=== PATIENT | male | born 1980 | race Caucasian/White ===

== ENCOUNTER 2019-07-30 13:59 | Day surgery (SDC) | payer BC ==
--- NOTE | 2019-07-30 14:29 | PCM.PREANE ---
Preanesthetic Assessment - Procedure Proposed Procedure: egd with foreign body removal - Anesthesia/Transfusion/Family Hx Anesthesia History: Prior Anesthesia Without Reaction Family History of Anesthesia Reaction: No Transfusion History: No Prior Transfusion(s) - Review of Systems General: No Symptoms Pulmonary: No Symptoms Cardiovascular: No Symptoms Gastrointestinal: No Symptoms Neurological: Headache (migraines) Other: Reports: None - Physical Assessment NPO Status Date: 07/29/19 NPO Status Time: 20:00 (steak) Vital Signs: 117/74 75 96% 16 97.8 Height: 5 ft 10 in Weight: 86.183 kg ASA Class: 2E Mental Status: Alert & Oriented x3 Airway Class: Mallampati = 1 Dentition: Reports: Normal Dentition Thyro-Mental Finger Breadths: 3 Mouth Opening Finger Breadths: 3 ROM/Head Extension: Full Lungs: Clear to Auscultation, Normal Respiratory Effort Cardiovascular: Regular Rate, Regular Rhythm, No Murmurs - Allergies Allergies/Adverse Reactions: Allergies Allergy/AdvReac Type Severity Reaction Status Date / Time No Known Allergies Allergy Verified 07/26/14 11:14 - Blood Blood Available: No - Acknowledgements Anesthesia Type Planned: General Anesthesia, MAC Pt an Appropriate Candidate for the Planned Anesthesia: Yes Alternatives and Risks of Anesthesia Discussed w Pt/Guardian: Yes Pt/Guardian Understands and Agrees with Anesthesia Plan: Yes PreAnesthesia Questionnaire Cardiovascular History: 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) Respiratory History: Reports: None Gastrointestinal History: Reports: GERD (prn), Other (See Below) (has had issues with food stuck before- never surgery) Musculoskeletal History: Reports: None Neurological History: Reports: Migraines Psychiatric History: Reports: None Endocrine/Metabolic History: Reports: None Oncologic (Cancer) History: Reports: None - Past Surgical History HEENT Surgical History: Reports: Naso-Sinus Surgery GI Surgical History: Reports: Appendectomy - SUBSTANCE USE Smoking Status *Q: Never Smoker (no routine home meds) Tobacco Use Within Last Twelve Months: No Second Hand Smoke Exposure: No Days Per Week of Alcohol Use: 0 (rare) Recreational Drug Use History: No
[2019-07-30] MEDS ORDERED: Sodium Chloride 0.9% 10 ML Syringe FLUSH PRN (14:35)
[2019-07-30] MEDS ORDERED: Lidocaine 1%/Sod Bicarbonate in NS 8.4% 1 ML Syringe IDERM PRN (14:35)
[2019-07-30] MEDS ORDERED: Midazolam 1 MG/ML 2 ML SDV ONE (14:38)
[2019-07-30] MEDS ORDERED: Lidocaine 1% 4 ML ONE (14:38)
[2019-07-30] MEDS ORDERED: Propofol 200 MG/20 ML SDV ONE ×2 (14:38→16:24)
[2019-07-30] MEDS ORDERED: fentaNYL 100 MCG/2 ML SDV ONE (14:38)
[2019-07-30] MEDS ORDERED: Lactated Ringers 1,000 ML IV SCH (14:45)
--- NOTE | 2019-07-30 16:18 | PCM.HP.2 ---
H&P History of Present Illness - General Date of Service: 07/30/19 Source of Information: Patient History Limitations: Reports: No Limitations - History of Present Illness Initial Comments - Free Text/Narative: Patient has been having trouble swallowing for a period of time. Last night he was eating steak and had a piece of steak stuck. He was trying to eat and nothing was going through as he kept vomiting it. he denies any fevers chills, sob, chest pains. Onset of Symptoms: Reports: Gradual Duration of Symptoms: Reports: Day(s): (1), Constant Location: Reports: Abdomen Quality: Reports: Other Severity: Moderate Improves with: Reports: None Worsens with: Reports: None Throat Pain Score (Numeric/FACES): 2 - Related Data Allergies/Adverse Reactions: Allergies Allergy/AdvReac Type Severity Reaction Status Date / Time No Known Allergies Allergy Verified 07/26/14 11:14 Home Medications: Home Meds EPINEPHrine [Epipen] 1 injection SQ ASDIRECTED 07/30/19 [History] Esomeprazole Magnesium [Nexium] 40 mg PO BID 07/30/19 [History] SUMAtriptan Succinate [Imitrex] 100 mg PO ASDIRECTED PRN 07/30/19 [History] Past Medical History Cardiovascular History: 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) Respiratory History: Reports: None Gastrointestinal History: Reports: GERD (prn), Other (See Below) (has had issues with food stuck before- never surgery) Musculoskeletal History: Reports: None Neurological History: Reports: Migraines Psychiatric History: Reports: None Endocrine/Metabolic History: Reports: None Oncologic (Cancer) History: Reports: None - Past Surgical History HEENT Surgical History: Reports: Naso-Sinus Surgery GI Surgical History: Reports: Appendectomy Social & Family History - Tobacco Use Smoking Status *Q: Never Smoker (no routine home meds) Second Hand Smoke Exposure: No - Caffeine Use Caffeine Use: Reports: Coffee - Alcohol Use Days Per Week of Alcohol Use: 0 (rare) - Recreational Drug Use Recreational Drug Use: No H&P Review of Systems - Review of Systems: Review Of Systems: See Below General: Reports: Other (cant swallow) HEENT: Reports: No Symptoms Pulmonary: Reports: No Symptoms Cardiovascular: Reports: No Symptoms Gastrointestinal: Reports: Vomiting Genitourinary: Reports: No Symptoms Musculoskeletal: Reports: No Symptoms Skin: Reports: No Symptoms Psychiatric: Reports: No Symptoms Exam - Exam Exam: See Below - Vital Signs Vital Signs: Last Vital Signs Temp 97.8 F 07/30/19 14:05 Pulse 75 07/30/19 14:05 Resp 16 07/30/19 14:05 BP 117/74 07/30/19 14:05 Pulse Ox 96 07/30/19 14:05 Weight: 86.183 kg - Exam General: Alert, Oriented, Cooperative, Mild Distress Lungs: Clear to Auscultation, Normal Respiratory Effort Cardiovascular: Regular Rate, Regular Rhythm, Normal S1, Normal S2 GI/Abdominal Exam: Soft, Non-Tender, No Organomegaly, No Distention, No Abnormal Bruit, No Mass Sepsis Event Note - Evaluation Sepsis Screening Result: No Definite Risk - Focused Exam Vital Signs: Vital Signs Temp Pulse Resp BP Pulse Ox 07/30/19 14:05 97.8 F 75 16 117/74 96 Date Exam was Performed: 07/30/19 Time Exam was Performed: 16:13 Problem List Initiated/Reviewed/Updated: No Orders Last 24hrs: Active Orders 24 hr Category Date Time Status Peripheral IV Care [RC] . DIRECTED Care 07/30/19 14:35 Active Verify Patient Consent Obtain [RC] ASDIRECTED Care 07/30/19 14:35 Active Lactated Ringers [Ringers, Lactated] 1,000 ml Med 07/30/19 14:45 Active IV ASDIRECTED Lidocaine 1%/Sod Bicarbonate [Buffered Lidocaine 1% in Med 07/30/19 14:35 Active NS 8.4%] 0.25 ml IDERM ONETIME PRN Sodium Chloride 0.9% [Saline Flush] Med 07/30/19 14:35 Active 10 ml FLUSH ASDIRECTED PRN Medication Administration Instruction [OM.PC] Routine Oth 07/30/19 14:35 Ordered Peripheral IV Insertion Adult [OM.PC] Routine Oth 07/30/19 14:35 Ordered Medication Orders Lactated Ringer's (Ringers, Lactated) 1,000 mls @ 125 mls/hr IV ASDIRECTED NAYELY Stop: 07/30/19 23:00 Last Admin: 07/30/19 14:25 Dose: 125 mls/hr Lidocaine/Sodium Bicarbonate (Buffered Lidocaine 1% In Ns 8.4%) 0.25 ml IDERM ONETIME PRN PRN Reason: Prior to IV Start Stop: 07/30/19 23:00 Last Admin: 07/30/19 14:24 Dose: 0.25 ml Sodium Chloride (Saline Flush) 10 ml FLUSH ASDIRECTED PRN PRN Reason: Keep Vein Open Stop: 07/30/19 23:00 Assessment/Plan Comment:: Patient has esophageal food impaction. We will proceed with EGD, Fb removal, possible dilation. We discussed risks, benefits and alternatives. All questions were answered and informed consent was obtained.
[2019-07-30] MEDS ORDERED: Succinylcholine/Sod PF 100 MG/5 ML SYRINGE IV ONE (16:39)
[2019-07-30] MEDS ORDERED: Lactated Ringers 1,000 ML ONE (16:45)
[2019-07-30] MEDS ORDERED: Ondansetron 4 MG/2 ML SDV ONE (16:45)
--- NOTE | 2019-07-30 17:20 | PCM.POSTAN ---
POST ANESTHESIA ASSESSMENT - MENTAL STATUS Mental Status: Alert, Oriented - VITAL SIGNS Vital Signs: Last Vital Signs Temp 98.2 F 07/30/19 17:15 Pulse 75 07/30/19 14:05 Resp 15 07/30/19 17:15 BP 126/76 07/30/19 17:15 Pulse Ox 96 07/30/19 17:15 - RESPIRATORY Respiratory Status: Respiratory Rate WNL, Airway Patent, O2 Saturation Stable, Supplemental Oxygen - CARDIOVASCULAR CV Status: Pulse Rate WNL, Blood Pressure Stable - GASTROINTESTINAL GI Status: No Symptoms - PAIN Pain Score: 0 - POST OP HYDRATION Hydration Status: Adequate & Stable
[2019-07-30] MEDS ORDERED: HYDROmorphone 0.5 MG/0.5 ML Syringe IVPUSH PRN (17:21)
[2019-07-30] MEDS ORDERED: Ondansetron 4 MG/2 ML SDV IVPUSH PRN (17:21)
[2019-07-30] MEDS ORDERED: fentaNYL 100 MCG/2 ML SDV IVPUSH PRN (17:21)
--- NOTE | 2019-07-30 17:34 | PCM48HPAN ---
Post Anesthesia Note - EVALUATION WITHIN 48HRS OF ANESTHETIC Vital Signs in Normal Range: Yes Patient Participated in Evaluation: Yes Respiratory Function Stable: Yes Airway Patent: Yes Cardiovascular Function Stable: Yes Hydration Status Stable: Yes Pain Control Satisfactory: Yes Nausea and Vomiting Control Satisfactory: Yes Mental Status Recovered: Yes Vital Signs: Last Vital Signs Temp 98.1 F 07/30/19 17:30 Pulse 75 07/30/19 14:05 Resp 20 07/30/19 17:30 BP 116/60 07/30/19 17:30 Pulse Ox 94 L 07/30/19 17:30
--- NOTE | 2019-07-31 11:20 | PROC ---
DATE OF OPERATION: 07/30/2019 SURGEON: Wei Pittman MD PREOPERATIVE DIAGNOSIS: Esophageal food impaction. POSTOPERATIVE DIAGNOSES: 1. Esophageal food impaction. 2. Distal esophageal stricture. 3. Gastritis. 4. Esophagitis. OPERATION PERFORMED: 1. Esophagogastroduodenoscopy with foreign body disimpaction. 2. Balloon dilation of distal esophageal stricture. 3. Gastric and esophageal biopsies. ANESTHESIA: General endotracheal. ESTIMATED BLOOD LOSS: Minimal. COMPLICATIONS: None. INDICATIONS AND CONSENT: Mr. Pichardo is a 38-year-old male who has been having trouble swallowing for several months. The patient tried to eat a piece of steak last night and it got stuck into the esophagus. The patient tried to eat after that, but kept vomiting. He went to the emergency department this morning and a CT scan was performed and it was noted that he had soft tissue mass in the distal esophagus concerning for food impaction. The patient was sent here for evaluation. I saw the patient and confirmed the findings and discussed with the patient that he needed an EGD with food disimpaction, biopsies as well as possible dilation. I discussed with the patient risks, benefits, and alternatives. Risks discussed included bleeding and perforation. The patient agreed to proceed with procedure and informed consent was obtained. DETAILS OF PROCEDURE: The patient was taken to the procedure room and placed in left lateral decubitus position. Following induction of initially monitored anesthesia care, a time- out was performed and we began the procedure. I used a therapeutic Olympus endoscope to enter the mouth and into the esophagus. There was clearly a piece of food in the distal esophagus. This was pushed slowly, but steadily and eventually it went into the stomach. There was a stricture about 0.9 cm in the distal esophagus. I was able to traverse this stricture with a gentle push through the scope, and the stomach was examined down to the second portion of duodenum. The duodenum was normal. The antrum appeared to be a little erythematous indicating gastritis. We took biopsies for histology as well as H pylori analysis. On retroflex views, the food bolus could be seen in the cardia of the stomach. There was no hiatal hernia. The scope was withdrawn back into the stricture. We were able to traverse the stricture again. At this point, we did find some slight erythema in the distal esophagus. The stricture was at 38 cm from the incisors and it appeared benign. We used 12, 13.5, and 15 pneumatic balloons to stretch this stricture. Biopsies were taken here at the stricture site as well as the distal esophagus for histologic analysis. At this point, we advanced the scope back down to the stomach. Once the dilation was done, the stricture was open and scope was freely able to move now between the esophagus and the stomach. At this point, the air was suctioned out from the stomach and esophagus, and the food was also suctioned out and scope was withdrawn. There were no other abnormalities in mid and distal esophagus. The plan is for the patient to be able to tolerate food and be able to discharge home today. The patient will be taking Nexium daily for the next 6 months. The patient may need future dilation and I did warn him about this, should the stricture recur. At this point, the patient has an indication for anti-reflux surgery, and I discussed with him about this. If he needs surgery, he will come to clinic to discuss about this further. [facility] /[id number] TEO
== END 2019-07-30 16:19 | disposition home or self-care (01) ==
LOC: JD.SDS 13:59
PROVIDERS: ATTEND Surgery
DX: K29.50 Unspecified chronic gastritis without bleeding (principal); K20.9 Esophagitis, unspecified; K21.9 Gastro-esophageal reflux disease without esophagitis; K22.2 Esophageal obstruction; T18.128A Food in esophagus causing other injury, initial encounter; Z79.899 Other long term (current) drug therapy
CPT/HCPCS: 43239; 43247; 43249; J0330; J2001; J2250; J2405; J2704; J3010; J7120; 00731

== ENCOUNTER 2024-02-10 13:04 | Day surgery (SDC) | payer BC ==
[2024-02-10 14:04] LABS: BASOPHILS PERCENT AUTO 0.5 % (0.0-1.0); EOSINOPHILS ABSOLUTE AUTO 0.4 K/mm3 (0.0-0.4); EOSINOPHILS PERCENT AUTO 4.7 % (0.0-6.0); HEMATOCRIT 47.5 % (42.0-52.0); HEMOGLOBIN 15.4 gm/dl (14.0-18.0); IMMATURE GRAN ABSOLUTE AUTO 0.02 K/mm3 (0.00-0.05); IMMATURE GRAN PERCENT AUTO 0.3 % (0.0-0.4); LYMPHOCYTES ABSOLUTE AUTO 1.7 K/mm3 (1.0-4.8); LYMPHOCYTES PERCENT AUTO 22.1 % (24.0-44.0); MEAN CORPUSCULAR HEMOGLOBIN 28.1 pg (28.0-32.0); MEAN CORPUSCULAR HGB CONC 32.4 g/dl (32.0-36.0); MEAN CORPUSCULAR VOLUME 86.5 fl (83.0-99.0); MEAN PLATELET VOLUME 9.9 fl (9.4-12.4); MONOCYTES ABSOLUTE AUTO 0.6 K/mm3 (0.0-0.8); MONOCYTES PERCENT AUTO 7.9 % (0.0-8.0); NEUTROPHILS ABSOLUTE AUTO 5.1 K/mm3 (1.8-7.7); NEUTROPHILS PERCENT AUTO 64.5 % (41.0-71.0); PLATELET COUNT,PLT 295 K/mm3 (150-400); RED BLOOD CELL COUNT 5.49 M/mm3 (4.52-5.90); WHITE BLOOD CELL COUNT,WBC 7.83 K/mm3 (3.9-11.3)
[2024-02-10 14:21] LABS: A/G RATIO 1.1 (1-2); ALBUMIN 4.1 g/dl (3.4-5.0); ANION GAP 13.5 (5-15); BILIRUBIN TOTAL 0.6 mg/dL (0.2-1.0); BUN/CREATININE RATIO 12.5 (14-18); CALCIUM 9.4 mg/dL (8.5-10.1); CREATININE 1.2 mg/dL (0.7-1.3); EST CRCL DRUG DOSING (CG) 84.11 mL/min; POTASSIUM,K 4.5 mEq/L (3.5-5.1); PROTEIN TOTAL,TP 7.9 g/dl (6.4-8.2)
[2024-02-10] MEDS: LORazepam 2 MG/ML SDV IVPUSH ONE (14:45)
[2024-02-10] MEDS: Sodium Chloride 0.9% 10 ML Syringe FLUSH PRN (14:48)
[2024-02-10] MEDS: Glucagon,Human Recombinant 1 MG Vial IVPUSH ONE (14:51)
[2024-02-10] MEDS: Sodium Chloride 0.9% 1,000 ML IV STA (14:54)
[2024-02-10] MEDS ORDERED: Propofol 200 MG/20 ML SDV ONE (16:36)
[2024-02-10] MEDS ORDERED: fentaNYL 100 MCG/2 ML SDV ONE (16:36)
[2024-02-10] MEDS ORDERED: Midazolam 1 MG/ML 2 ML SDV ONE (16:37)
[2024-02-10] MEDS ORDERED: Rocuronium 50 MG/5 ML Vial ONE (16:37)
[2024-02-10] MEDS ORDERED: dexmedeTOMIDine HCl 200 MCG/2 ML SDV ONE (16:37)
[2024-02-10] MEDS ORDERED: Succinylcholine 200 MG/10 ML MDV ONE (16:37)
[2024-02-10] MEDS ORDERED: Sugammadex Sodium 200 MG/2 ML VIAL IV ONE (16:38)
[2024-02-10] MEDS ORDERED: Sodium Chloride 0.9% 10 ML Syringe FLUSH PRN (17:14)
[2024-02-10] MEDS ORDERED: Lactated Ringers 1,000 ML IV SCH (17:15)
[2024-02-10] MEDS ORDERED: Sodium Chloride 0.9% 10 ML Syringe FLUSH SCH (21:00)
== END 2024-02-10 18:15 | disposition home or self-care (01) ==
LOC: JD.ED 13:04 → JD.SDS 16:00
PROVIDERS: ATTEND Surgery
DX: T18.128A Food in esophagus causing other injury, initial encounter (principal); K22.2 Esophageal obstruction; K22.70 Barrett's esophagus without dysplasia; K21.00 Gastro-esophageal reflux disease with esophagitis, without bleeding
CPT/HCPCS: 36415; 43239; 43247; 71045; 80053; 85025; 96361; 96374; 96375; 99284; J0330; J1610; J2060; J2250; J2704; J3010; J3490; J7030; 00731; 99140; 99285